=== PATIENT | male | born 1985 | race Caucasian/White ===

== ENCOUNTER 2024-09-28 22:32 | Inpatient (IN) | payer BC, OTHER ==
[~2024-09-28] VITALS: Ht 182.9 cm; Wt 112.5 kg
[2024-09-28 22:46] VITALS: O2SAT 100
[2024-09-28 23:38] LABS: BASOPHILS # (AUTO) 0.3 K/uL (0.0-0.2); BASOPHILS % (AUTO) 3.6 % (0.0-2.0); EOSINOPHILS # (AUTO) 0.5 K/uL (0.0-0.7); EOSINOPHILS % (AUTO) 6.6 % (0.0-6.0); HEMATOCRIT 46 % (39-51); HEMOGLOBIN 15.1 g/dL (13.5-17.5); LYMPHOCYTES # (AUTO) 2.8 K/uL (0.8-4.8); LYMPHOCYTES % (AUTO) 37.8 % (20.0-44.0); MEAN CORPUSCULAR HEMOGLOBIN 29 PG (26.0-33.0); MEAN CORPUSCULAR HGB CONC 33 g/dl (31.0-36.0); MEAN CORPUSCULAR VOLUME 88 fL (80-96); MONOCYTES # (AUTO) 0.6 K/uL (0.1-1.30); MONOCYTES % (AUTO) 7.9 % (2.0-12.0); NEUTROPHILS # (AUTO) 3.3 K/uL (1.8-8.9); NEUTROPHILS % (AUTO) 44.1 % (43.0-81.0); PLATELET COUNT (AUTO) 341 K/uL (150-450); RED BLOOD CELL COUNT(AUTO) 5.26 MIL/uL (4.5-6.0); RED CELL DISTRIBUTION WIDTH 15.9 % (11.5-15.0); WHITE BLOOD COUNT (AUTO) 7.4 K/uL (4.3-11.0)
[2024-09-28 23:46] LABS: APPEARANCE,URINE CLEAR (CLEAR); BILIRUBIN,URINE NEGATIVE (NEGATIVE); BLOOD, URINE NEGATIVE Ery/uL (NEGATIVE); COLOR,URINE YELLOW (YELLOW); KETONES,URINE NEGATIVE (NEGATIVE); LEUKOCYTE ESTERASE ,URINE NEGATIVE (NEGATIVE); NITRITE, URINE NEGATIVE (NEGATIVE); PH,URINE 6.5 (5.0-8.0); PROTEIN,URINE NEGATIVE (NEGATIVE); UGLUCOSE NEGATIVE (NEGATIVE)
[2024-09-29 00:22] LABS: ALBUMIN 3.7 g/dL (3.4-5.0); BILIRUBIN,TOTAL 0.3 mg/dL (0.2-1.0); CALCIUM, SERUM 8.9 mg/dL (8.5-10.1); CREATININE 1.2 mg/dL (0.6-1.3); POTASSIUM 4.6 mmol/L (3.5-5.1); TOTAL PROTEIN, SERUM 7.5 g/dL (6.4-8.2)
[2024-09-29] MEDS ORDERED: ONDANSETRON HCL/PF 4 MG/2 ML VIAL IVP PRN (00:30)
[2024-09-29] MEDS ORDERED: Z GUARD REMEDY 4 OZ OINT TP PRN (00:30)
[2024-09-29 00:33] LABS: ADD URINE CULTURE NO; BACTERIA,URINE Rare /HPF (None Seen); RBC,URINE 0-2 /HPF (0-2); SQUAMOUS EPITHELIAL CELL,UR Rare /HPF (None Seen); WBC,URINE NONE SEEN /HPF (0-3)
[2024-09-29 01:15] VITALS: BP 139/91; TEMP 97.5; O2SAT 97
[2024-09-29] MEDS: IV NS 0.9% 1,000 ML IV SCH (01:23)
[2024-09-29] MEDS: PIPERACI/TAZO 3.375GM/D5W 50ML PB IV ONE (03:32)
[2024-09-29] MEDS: ZOSYN IVPB 3.375 G in IV D5W 50ml IV SCH (03:37)
[2024-09-29 07:13] LABS: BASOPHILS # (AUTO) 0.1 K/uL (0.0-0.2); BASOPHILS % (AUTO) 0.8 % (0.0-2.0); EOSINOPHILS # (AUTO) 0.4 K/uL (0.0-0.7); EOSINOPHILS % (AUTO) 4.7 % (0.0-6.0); HEMATOCRIT 46 % (39-51); HEMOGLOBIN 15.3 g/dL (13.5-17.5); LYMPHOCYTES # (AUTO) 2.6 K/uL (0.8-4.8); LYMPHOCYTES % (AUTO) 29.1 % (20.0-44.0); MEAN CORPUSCULAR HEMOGLOBIN 29 PG (26.0-33.0); MEAN CORPUSCULAR HGB CONC 33 g/dl (31.0-36.0); MEAN CORPUSCULAR VOLUME 88 fL (80-96); MONOCYTES # (AUTO) 0.7 K/uL (0.1-1.30); MONOCYTES % (AUTO) 7.6 % (2.0-12.0); NEUTROPHILS # (AUTO) 5.2 K/uL (1.8-8.9); NEUTROPHILS % (AUTO) 57.8 % (43.0-81.0); PLATELET COUNT (AUTO) 333 K/uL (150-450); RED BLOOD CELL COUNT(AUTO) 5.27 MIL/uL (4.5-6.0); RED CELL DISTRIBUTION WIDTH 15.3 % (11.5-15.0)
[2024-09-29 07:27] LABS: CALCIUM, SERUM 8.6 mg/dL (8.5-10.1); CREATININE 1.2 mg/dL (0.6-1.3); MAGNESIUM 2.6 mg/dL (1.8-2.4); PHOSPHORUS 3.4 mg/dL (2.5-4.9); POTASSIUM 4.3 mmol/L (3.5-5.1)
[2024-09-29] MEDS ORDERED: LIDOCAINE 1%-EPI 1:100,000 20 ML VIAL ONE (07:51)
[2024-09-29] MEDS ORDERED: BUPIVACAINE 0.5 % PF 150 MG/30 ML VIAL ONE (07:51)
[2024-09-29] MEDS ORDERED: FENTANYL PF 250MCG/5ML AMPUL ONE (07:56)
[2024-09-29] MEDS ORDERED: MIDAZOLAM HCL 2 MG/2ML VIAL ONE (07:56)
[2024-09-29] MEDS ORDERED: ROCURONIUM BROMIDE 50 MG/5 ML ONE (07:57)
[2024-09-29] MEDS ORDERED: FAMOTIDINE/PF INJ 20 MG/2 ML VIAL IV ONE (07:57)
[2024-09-29 08:00] VITALS: BP 122/81; TEMP 97.8; O2SAT 97
[2024-09-29] MEDS ORDERED: IV NS 0.9% 1,000 ML IV PRN (08:03)
[2024-09-29] MEDS ORDERED: BACITRACIN ZINC OINT PACKET 1 EA PACKET TP ONE (09:01)
[2024-09-29] MEDS ORDERED: HYDROMORPHONE 1 MG/1 ML DISP.SYRIN ONE (09:47)
[2024-09-29] MEDS ORDERED: HYDROMORPHONE INJ 2 MG/ML DISP.SYRIN IV PRN (10:00)
[2024-09-29] MEDS: PANTOPRAZOLE 40 MG VIAL IV SCH (10:46)
[2024-09-29] MEDS: MORPHINE SULFATE INJ 4 MG/ML DISP.SYRIN IV PRN (11:13)
[2024-09-29] MEDS: GABAPENTIN 100 MG CAPSULE PO SCH (11:52)
[2024-09-29] MEDS: CELECOXIB 100 MG CAPSULE PO SCH (11:52)
[2024-09-29] MEDS: ACETAMINOPHEN 325 MG TABLET PO SCH (11:53)
[2024-09-29 12:00] VITALS: BP 120/85; TEMP 98.4; O2SAT 96
[2024-09-29] MEDS ORDERED: PIPERACILLIN /TAZOBACTAM 3.375 G in IV D5W 50 ML IV SCH (13:00)
[2024-09-29] MEDS: PIPERACILLIN /TAZOBACTAM 3.375 G in IV D5W 100 ML IV SCH (13:04)
[2024-09-29] MEDS: HYDROMORPHONE 1 MG/1 ML DISP.SYRIN IV PRN (14:09)
[2024-09-29 16:00] VITALS: BP 122/69; TEMP 98.2; O2SAT 95
[2024-09-29] MEDS ORDERED: HYDR-3972 PO (17:44)
[2024-09-29] MEDS ORDERED: ONDA4TAB5 PO (17:44)
[2024-09-29] MEDS ORDERED: AMOX-430 PO (17:44)
== END 2024-09-29 18:00 | disposition home or self-care (01) | DRG 399 ==
LOC: ER 22:32 → MED 09-29 00:17
PROVIDERS: ADMIT Nurse Practitioner Acute Care; ATTEND Nurse Practitioner Acute Care
PROC: 0DTJ4ZZ Resection of Appendix, Percutaneous Endoscopic Approach (ICD-10-PCS; principal; 2024-09-29)
DX: K35.80 Unspecified acute appendicitis (principal); E66.9 Obesity, unspecified; F17.210 Nicotine dependence, cigarettes, uncomplicated; Z68.33 Body mass index [BMI] 33.0-33.9, adult
CPT/HCPCS: 36415; 80048-TC; 80053-TC; 81001; 83690-TC; 83735-TC; 84100-TC; 85025-TC; A4223; A6403; G0378; J0690; J1100; J1171; J1885; J2250; J2270; J2405; J2470; J2543; J2704; J3010; J3490; J7030; J7060